=== PATIENT | male | born 1995 | race Caucasian/White ===

== ENCOUNTER 2017-03-24 19:33 | Emergency (ER) | payer BC ==
[~2017-03-24] VITALS: Ht 175.3 cm; Wt 65.8 kg
[2017-03-24] MEDS ORDERED: PREDNISONE 10 M10 MG PO (19:47)
[2017-03-24] MEDS ORDERED: AUGMENTIN 875-1 EACH PO (19:48)
[2017-03-24] MEDS ORDERED: VENTOLIN HFA 1818 GM INH (20:28)
[2017-03-24] MEDS ORDERED: GUAIFEN-CODEINE10 ML PO (20:35)
[2017-03-24 20:39] VITALS: BP 107/64
== END 2017-03-24 20:40 | disposition home or self-care (01) ==
LOC: ER 19:33
DX: J40 Bronchitis, not specified as acute or chronic (principal); J98.01 Acute bronchospasm

== ENCOUNTER 2019-10-07 21:02 | Emergency (ER) | payer BC ==
[~2019-10-07] VITALS: Ht 180.3 cm; Wt 77.1 kg
[~2019-10-07 21:02] MED LIST: AUGMENTIN 875-1 EACH PO; GUAIFEN-CODEINE10 ML PO; PREDNISONE 10 M10 MG PO; VENTOLIN HFA 1818 GM INH
[2019-10-07 21:51] VITALS: BP 110/80
== END 2019-10-07 21:40 | disposition home or self-care (01) ==
LOC: ER 21:02
DX: S31.119A Laceration without foreign body of abdominal wall, unspecified quadrant without penetration into peritoneal cavity, initial encounter (principal); W25.XXXA Contact with sharp glass, initial encounter; Y93.89 Activity, other specified; Y92.89 Other specified places as the place of occurrence of the external cause; Y99.8 Other external cause status